=== PATIENT | male | born 1965 | race Two or more races ===

== ENCOUNTER 2017-07-19 21:42 | Observation (INO) | payer BC ==
[2017-07-19] MEDS ORDERED: SODIUM CHLORIDE 0.9% 1,000 ML IV STA (22:08)
--- NOTE | 2017-07-19 22:25 | ED ---
General Adult HPI - General Chief complaint: Neuro Symptoms/Deficit Stated complaint: Poss stroke Time Seen by Provider: 07/19/17 22:06 Source: patient, RN notes reviewed, old records reviewed Mode of arrival: ambulatory Limitations: no limitations - History of Present Illness Initial comments: This is a 51-year-old male the ER for evaluation neurological deficit. Patient does several cardiac orbit is including high blood pressure and cholesterol and diabetes. Patient states his status and numb all day and he went to [facility] and he noticed that he is having difficulty with sleeping. The patient does reiterate that neurological symptoms have been present throughout the day, occasional blurry vision, left-sided facial numbness and decrease in sensation. No prior history of CVA. Denies arm or leg deficits - Related Data Home Medications Medication Instructions Recorded Confirmed Atorvastatin Calcium [Lipitor] 40 mg PO 07/19/17 07/19/17 DULoxetine HCL [Cymbalta] 60 mg PO DAILY 07/19/17 07/19/17 Gabapentin [Neurontin] 300 mg PO 07/19/17 HYDROcodone/APAP 7.5-325MG [[place] 1 tab PO Q6HR PRN 07/19/17 07/19/17 7.5-325] Lisinopril [Prinivil] 10 mg PO DAILY 07/19/17 07/19/17 sitaGLIPtin PHOS/metFORMIN HCL 1 each PO BID 07/19/17 07/19/17 [Janumet 50-1,000 mg Tablet] Allergies Allergy/AdvReac Type Severity Reaction Status Date / Time No Known Allergies Allergy Verified 07/19/17 22:03 Review of Systems ROS Statement: Those systems with pertinent positive or pertinent negative responses have been documented in the HPI. ROS Other: All systems not noted in ROS Statement are negative. Past Medical History Past Medical History: Diabetes Mellitus, Hyperlipidemia, Hypertension Additional Past Medical History / Comment(s): neuropathy History of Any Multi-Drug Resistant Organisms: None Reported Past Surgical History: No Surgical Hx Reported Past Psychological History: No Psychological Hx Reported Smoking Status: Smoker, current status unknown Past Alcohol Use History: Daily Past Drug Use History: Marijuana General Exam - General Exam Comments Initial Comments: Left facial droop, involves upper forehead bilateral Limitations: no limitations, altered mental status General appearance: alert, in no apparent distress Head exam: Present: atraumatic, normocephalic, normal inspection Eye exam: Present: normal appearance, PERRL, EOMI. Absent: scleral icterus, conjunctival injection, periorbital swelling ENT exam: Present: normal exam, mucous membranes moist Neck exam: Present: normal inspection. Absent: tenderness, meningismus, lymphadenopathy Respiratory exam: Present: normal lung sounds bilaterally. Absent: respiratory distress, wheezes, rales, rhonchi, stridor Cardiovascular Exam: Present: regular rate, normal rhythm, normal heart sounds. Absent: systolic murmur, diastolic murmur, rubs, gallop, clicks GI/Abdominal exam: Present: soft, normal bowel sounds. Absent: distended, tenderness, guarding, rebound, rigid Extremities exam: Present: normal inspection, full ROM, normal capillary refill. Absent: tenderness, pedal edema, joint swelling, calf tenderness Back exam: Present: normal inspection Neurological exam: Present: alert, oriented X3, CN II-XII intact Psychiatric exam: Present: normal affect, normal mood Skin exam: Present: warm, dry, intact, normal color. Absent: rash Course Vital Signs 07/19/17 21:58 Temperature 97.7 F Pulse Rate 85 Respiratory 18 Rate Blood Pressure 149/79 O2 Sat by Pulse 96 Oximetry - Reevaluation(s) Reevaluation #1: 07/19/17 23:14 pt w no neurologivcal improvement discussed with patient symptoms and advised for neuro consult as symptoms are not clear cut, family agrees EKG Findings - EKG Comments: EKG Findings:: EKG shows normal sinus at a rate of 89, [place] 156, QRS 80, QTC 418 Medical Decision Making - Medical Decision Making 51 male to the ED co Left facial numbness, left facial weakness, patient will admit for neuro evaluation of CVA, patient does have significant cardiac risk - Lab Data Result diagrams: 07/19/17 22:42 Lab Results 07/19/17 07/19/17 Range/Units 22:42 22:42 WBC 7.7 (3.8-10.6) k/uL RBC 4.37 (4.30-5.90) m/uL Hgb 14.4 (13.0-17.5) gm/dL Hct 41.9 (39.0-53.0) % MCV 95.8 (80.0-100.0) fL MCH 32.8 (25.0-35.0) pg MCHC 34.3 (31.0-37.0) g/dL RDW 14.1 (11.5-15.5) % Plt Count 183 (150-450) k/uL Neutrophils % 61 % Lymphocytes % 24 % Monocytes % 7 % Eosinophils % 6 % Basophils % 1 % Neutrophils # 4.7 (1.3-7.7) k/uL Lymphocytes # 1.9 (1.0-4.8) k/uL Monocytes # 0.5 (0-1.0) k/uL Eosinophils # 0.4 (0-0.7) k/uL Basophils # 0.1 (0-0.2) k/uL PT 11.4 (9.0-12.0) sec INR 1.1 (<1.2) APTT 25.4 (22.0-30.0) sec - Radiology Data Radiology results: report reviewed (CT brain negative for acute disease), image reviewed Disposition Clinical Impression: Cerebrovascular accident, Adams's palsy Disposition: ADMITTED IP TO THIS [facility] Condition: Fair Referrals: Irlanda Vences DO [Primary Care Provider] - 1-2 days
--- NOTE | 2017-07-19 22:39 | CT ---
EXAM: CT Head Without Intravenous Contrast CLINICAL HISTORY: Weakness TECHNIQUE: Axial computed tomography images of the head/brain without intravenous contrast. DLP is 1064.30 mGy-cm. This CT exam was performed using one or more of the following dose reduction techniques: automated exposure control, adjustment of the mA and/or kV according to patient size, and/or use of iterative reconstruction technique. COMPARISON: No relevant prior studies available. FINDINGS: Brain: No evidence of acute transcortical infarct or acute intracranial hemorrhage. No significant white matter disease. No edema. Ventricles: Unremarkable. No ventriculomegaly. Bones/joints: Unremarkable. No acute fracture. Soft tissues: Probable 2.1 cm sebaceous cyst in the subcutaneous fat of the superior posterior neck, which is partially visualized. Sinuses: 2.2 cm mucous retention cyst versus polyp is seen in the visualized left maxillary sinus. Mastoid air cells: Unremarkable as visualized. No mastoid effusion. IMPRESSION: No evidence of acute transcortical infarct or acute intracranial hemorrhage. If symptoms persist, consider short-term interval CT versus MRI of the brain for follow-up.
[2017-07-19 22:58] LABS: Basophils # (A) 0.1 k/uL (0-0.2); Basophils % (A) 1 %; CH 33.7; CHCM 35.3; Eosinophils # (A) 0.4 k/uL (0-0.7); Eosinophils % (A) 6 %; HCT 41.9 % (39.0-53.0); HGB 14.4 gm/dL (13.0-17.5); Luc # (Auto) 0.13; Luc % (Auto) 2; Lymphocytes # (A) 1.9 k/uL (1.0-4.8); Lymphocytes % (A) 24 %; MCH 32.8 pg (25.0-35.0); MCHC 34.3 g/dL (31.0-37.0); MCV 95.8 fL (80.0-100.0); Monocytes # (A) 0.5 k/uL (0-1.0); Monocytes % (A) 7 %; Neutrophils # (A) 4.7 k/uL (1.3-7.7); Neutrophils % (A) 61 %; RBC 4.37 m/uL (4.30-5.90); RDW 14.1 % (11.5-15.5); WBC 7.7 k/uL (3.8-10.6)
[2017-07-19 23:11] LABS: INR 1.1 (<1.2); Partial Thromboplastin Time 25.4 sec (22.0-30.0); Prothrombin Time 11.4 sec (9.0-12.0)
[2017-07-19] MEDS ORDERED: ASPIRIN 325 MG TAB PO STA (23:11)
[2017-07-19 23:16] LABS: ALT 47 U/L (21-72); AST 42 U/L (17-59); Alkaline Phosphatase 66 U/L (38-126); Anion Gap 13 mmol/L; Blood Urea Nitrogen 11 mg/dL (9-20); Calcium 10.1 mg/dL (8.4-10.2); Carbon Dioxide 22 mmol/L (22-30); Chloride 104 mmol/L (98-107); Glucose 126 mg/dL (74-99); Magnesium 1.8 mg/dL (1.6-2.3); Non-African American GFR(MDRD) >60 (>60 ml/min/1.73 sqM); Phosphorous 3.8 mg/dL (2.5-4.5); Potassium 4.1 mmol/L (3.5-5.1); Sodium 139 mmol/L (137-145); Total Bilirubin 0.8 mg/dL (0.2-1.3); Total Protein 6.7 g/dL (6.3-8.2)
[2017-07-19 23:20] LABS: Creatine Kinase 86 U/L (55-170)
[2017-07-19 23:33] LABS: Troponin I <0.012 ng/mL (0.000-0.034)
[2017-07-19] MEDS: SODIUM CHLORIDE 0.9% 1,000 ML IV SCH (23:35)
[2017-07-20 00:48] VITALS: BMI 29.0
[2017-07-20] MEDS: HYDROcodone/APAP 7.5-325MG 1 EACH TAB PO PRN ×2 (09:12→15:37)
[2017-07-20] MEDS: LINAGLIPTIN 5 MG TABLET PO SCH ×2 (09:31→22:23)
[2017-07-20] MEDS: GABAPENTIN 300 MG CAP PO SCH ×3 (09:31→22:24)
[2017-07-20] MEDS: LISINOPRIL 10 MG TAB PO SCH (09:31)
[2017-07-20] MEDS: SODIUM CHLORIDE 0.9% 1,000 ML IV SCH (09:32)
[2017-07-20] MEDS: metFORMIN 500 MG TAB PO SCH ×2 (09:32→22:24)
[2017-07-20 10:23] VITALS: RESP 18
[2017-07-20 12:04] LABS: Glucose,Whole Blood 122 mg/dL (75-99)
[2017-07-20] MEDS: INSULIN LISPRO (humaLOG) 300 UNIT/3 ML VIAL SQ SCH ×3 (14:34→21:55)
[2017-07-20 16:31] LABS: Glucose,Whole Blood 119 mg/dL (75-99)
--- NOTE | 2017-07-20 16:46 | P.HPIM ---
History of Present Illness H&P Date: 07/20/17 Chief Complaint: Left facial numbness Patient is a 51-year-old with a known history of hypertension, diabetes type 2, diabetic neuropathy and hyperlipidemia came to the hospital with complaints of left cheek/facial numbness which he noted yesterday. Patient states his status and numb all day and he went to [facility] and he noticed that he is having difficulty. Patient tried to call his Pet. His aunt and noted that he was having left facial muscle weakness and advised to go to ER. Patient was also having some blurry vision and difficulty in speech. No prior history of CVA. No fever no chills no neck stiffness or headache.. No recent illnesses or sick contacts at home. Denies arm or leg deficits. Patient denied any loss of sensation on the forehead. Patient had CT head in the ER showed no intracranial abnormality MRI was ordered. Laboratory data within normal limits. Neurology has been consulted Review of Systems Constitutional: Patient denies any fever or chills . No generalized weakness or weight loss. Abdomen: Patient denied nausea vomiting and diarrhea and abdominal pain. Cardiovascular: Patient denies any chest pain or short of breath no palpitations. Respiratory: patient denied any cough or production. No shortness of breath Neurologic: Patient denied any numbness or tingling headache. Left facial numbness. No other weakness Musculoskeletal: Patient denies any complaints of joint swelling or deformity. Skin: Negative Psychiatric: Negative Endocrine: No heat or cold intolerance. No recent weight gain. Genitourinary: No dysuria or hematuria. All other 14 point ROS negative except the above Past Medical History Past Medical History: Diabetes Mellitus, Hyperlipidemia, Hypertension Additional Past Medical History / Comment(s): neuropathy History of Any Multi-Drug Resistant Organisms: None Reported Past Surgical History: No Surgical Hx Reported Past Psychological History: No Psychological Hx Reported Smoking Status: Smoker, current status unknown Past Alcohol Use History: Daily Past Drug Use History: Marijuana - Past Family History Mother Family Medical History: No Reported History Father Family Medical History: No Reported History Medications and Allergies Home Medications Medication Instructions Recorded Confirmed Type Atorvastatin Calcium [Lipitor] 40 mg PO HS 07/19/17 07/20/17 History DULoxetine HCL [Cymbalta] 60 mg PO HS 07/19/17 07/20/17 History Gabapentin [Neurontin] 900 mg PO TID 07/19/17 07/20/17 History Lisinopril [Prinivil] 10 mg PO DAILY 07/19/17 07/20/17 History sitaGLIPtin PHOS/metFORMIN HCL 1 tab PO BID 07/19/17 07/20/17 History [Janumet 50-1,000 mg Tablet] HYDROcodone/APAP 7.5-325MG [[place] 7.5 - 325 PO Q6HR 07/20/17 History 7.5-325] Allergies Allergy/AdvReac Type Severity Reaction Status Date / Time No Known Allergies Allergy Verified 07/20/17 07:49 Physical Exam Vitals: Vital Signs Temp Pulse Pulse Resp BP BP Pulse Ox 07/20/17 08:00 97.8 F 85 18 133/73 96 07/20/17 04:00 97.5 F L 86 17 136/71 95 07/19/17 23:36 75 15 153/76 98 07/19/17 23:11 97.4 F L 74 16 143/74 95 07/19/17 21:58 97.7 F 85 18 149/79 96 Intake and Output 07/19/17 07/20/17 07/20/17 22:59 06:59 14:59 Intake Total 500 530 Balance 500 530 Intake: Intake, IV Titration 500 Amount Sodium Chloride 0.9% 1, 500 000 ml @ 100 mls/hr IV . Q10H [facility] Rx#:[id number] Oral 530 Other: Voiding Method Toilet Toilet Weight 90.265 kg 94.3 kg PHYSICAL EXAMINATION: Patient is lying in the bed comfortably, no acute distress, awake alert and oriented.. HEENT: Normocephalic. Neck is supple. Pupils reactive. Nostrils clear. Oral cavity is moist. Ears reveal no drainage. Neck reveals no JVD, carotid bruits, or thyromegaly. CHEST EXAMINATION: Trachea is central. Symmetrical expansion. Lung eng clear to auscultation and percussion. CARDIAC: Normal S1, S2 with no gallops. No murmurs ABDOMEN: Soft. Bowel sounds normal. No organomegaly. No abdominal bruits. Extremities: reveal no edema. No clubbing or cyanosis Neurologically awake, alert, oriented x3 with well-coordinated movements. Patient does have numbness on the left cheek and loss of nasolabial fold Patient denied any numbness on the forehead. No gait abnormality. Skin: No rash or skin lesions. Psychiatric: Operative. Nonsuicidal Musculoskeletal: No joint swelling or deformity. Normal range of motion. Results CBC & Chem 7: 07/19/17 22:42 07/19/17 22:42 Labs: Abnormal Lab Results - Last 24 Hours (Table) 07/19/17 07/20/17 Range/Units 22:42 12:00 Creatinine 0.50 L (0.66-1.25) mg/dL Glucose 126 H (74-99) mg/dL POC Glucose (mg/dL) 122 H (75-99) mg/dL Thrombosis Risk Factor Assmnt - DVT/VTE Prophylaxis DVT/VTE Prophylaxis: Pharmacologic Prophylaxis ordered - Choose All That Apply Any of the Below Risk Factors Present?: No Other Risk Factors: No Other congenital or acquired thrombophilia - If yes, enter type in comment: No Thrombosis Risk Factor Assessment Level: Very Low Risk Assessment and Plan Plan: #1 left facial weakness likely due to acute CVA/TIA #2 hypertension #3 diabetes type 2 #4 hyperlipidemia #5 diabetic neuropathy #6 DVT prophylaxis Plan: Patient be continued on aspirin and atorvastatin. MRI was ordered for further evaluation. CT head showed no acute abnormality. Will check carotid duplex bilaterally as well. Continue with home medications and blood sugar management. Neurology has been consulted and further recommendations based on the clinical course.
[2017-07-20] MEDS ORDERED: ASPIRIN 325 MG TAB PO SCH (21:00)
[2017-07-20] MEDS ORDERED: ATORVASTATIN 40 MG TAB PO SCH (21:00)
[2017-07-20] MEDS ORDERED: DULoxetine HCL 60 MG CAPSULE.DR PO SCH (21:00)
[2017-07-20 21:20] LABS: Glucose,Whole Blood 111 mg/dL (75-99)
[2017-07-20] MEDS: methylPREDNISolone 4 MG TAB TAPER PO SCH (22:26)
[2017-07-21 06:24] LABS: Glucose,Whole Blood 157 mg/dL (75-99)
--- NOTE | 2017-07-21 06:31 | P.CNNES ---
History of Present Illness Consult date: 07/20/17 Reason for Consult: Patient admitted with left-sided facial numbness and weakness. History of Present Illness: This patient is a 51-year-old right-handed white male who was in his usual state of health until yesterday evening when he developed numbness involving the left side of his face. He was quite concerned as he was on his way to work and was not sure why his facial numbness came on suddenly. Patient does have several stroke risk factors including hypertension, diabetes mellitus, and hypercholesterolemia. He did complete his work but continued to notice numbness on the left side of the face. Apparently went to sleep yesterday but did try to whistle and grimace and noted that he was having left-sided facial weakness as well. The next day the patient was continuing to have similar symptoms of left-sided facial numbness and weakness on the face. He was quite concerned about the possibility of stroke. He was brought into the emergency room for further evaluation. He was seen in the ER by Dr. Lovett he was evaluated for possibility of acute stroke. His NIH stroke scale was 1.0. This was documented at 2215 hrs. on 07/19/2017. Patient was not felt to be a candidate for TPA. He states he has been working at [employer] and drives on a daily basis. He is not exposed to any cold wind or if exposure to the face to this event. He was evaluated in the ER by Dr. Lovett for possibility of stroke versus acute Clifford's palsy. He was sent for computed tomography scan of the brain which was negative for any acute changes. He was advised admission to the hospital for MRI study as well as a neurological assessment. The patient denies any previous history of TIA or stroke. He does follow with his primary care physician Dr. Vences on a fairly regular basis. He does have a history of underlying diabetes mellitus and states his blood sugars have been under fairly good control. He thinks his last hemoglobin A1c was around 7.0. During the onset of the left facial numbness he was also experiencing difficulty with taste sensation on the left side of his tongue. He did not experience any slurred speech. When he attempted to drink out of a glass it was coming out on the angle of the mouth on the left side. The patient was admitted to the hospital for full neurological evaluation. Patient was seen on [facility] today and his neurological examination is consistent with an acute left idiopathic Clifford's palsy. We have recommended starting the patient on a Medrol Dosepak and he will also require eyedrops to the left eye every 4-6 hours. We recommend that he patch the left eye when sleeping on a regular basis. Patient is scheduled for MRI of the brain tomorrow. We will await the results of the MRI and give further recommendations. Neurology is now been consulted for further evaluation and recommendations. Review of Systems Constitutional: Denies chills, Denies fever Eyes: left blurred vision, left tunnel vision/blind spots, denies pain Ears, nose, mouth and throat: Denies headache, Denies sore throat Cardiovascular: Denies chest pain, Denies shortness of breath Respiratory: Denies cough Gastrointestinal: Denies abdominal pain, Denies diarrhea, Denies nausea, Denies vomiting Musculoskeletal: Denies myalgias Integumentary: Denies pruritus, Denies rash Neurological: Reports paralysis, Reports paresthesias, Reports tingling, Denies numbness, Denies weakness Psychiatric: Denies anxiety, Denies depression Endocrine: Denies fatigue, Denies weight change Past Medical History Past Medical History: Diabetes Mellitus, Hyperlipidemia, Hypertension Additional Past Medical History / Comment(s): neuropathy History of Any Multi-Drug Resistant Organisms: None Reported Past Surgical History: No Surgical Hx Reported Past Psychological History: No Psychological Hx Reported Smoking Status: Smoker, current status unknown Past Alcohol Use History: Daily Past Drug Use History: Marijuana - Past Family History Mother Family Medical History: No Reported History Father Family Medical History: No Reported History Medications and Allergies Home Medications Medication Instructions Recorded Confirmed Type Atorvastatin Calcium [Lipitor] 40 mg PO HS 07/19/17 07/20/17 History DULoxetine HCL [Cymbalta] 60 mg PO HS 07/19/17 07/20/17 History Gabapentin [Neurontin] 900 mg PO TID 07/19/17 07/20/17 History Lisinopril [Prinivil] 10 mg PO DAILY 07/19/17 07/20/17 History sitaGLIPtin PHOS/metFORMIN HCL 1 tab PO BID 07/19/17 07/20/17 History [Janumet 50-1,000 mg Tablet] HYDROcodone/APAP 7.5-325MG [[place] 7.5 - 325 PO Q6HR 07/20/17 History 7.5-325] Allergies Allergy/AdvReac Type Severity Reaction Status Date / Time No Known Allergies Allergy Verified 07/20/17 07:49 Physical Examination - Vital Signs Vital Signs: Vital Signs Temp Pulse Pulse Resp BP BP Pulse Ox 07/20/17 08:00 97.8 F 85 18 133/73 96 07/20/17 04:00 97.5 F L 86 17 136/71 95 07/19/17 23:36 75 15 153/76 98 07/19/17 23:11 97.4 F L 74 16 143/74 95 07/19/17 21:58 97.7 F 85 18 149/79 96 Intake and Output 07/19/17 07/20/17 07/20/17 22:59 06:59 14:59 Intake Total 500 30 Balance 500 30 Intake: Intake, IV Titration 500 Amount Sodium Chloride 0.9% 1, 500 000 ml @ 100 mls/hr IV . Q10H [facility] Rx#:[id number] Oral 30 Other: Voiding Method Toilet Weight 90.265 kg 94.3 kg - Constitutional General appearance: average body habitus, cooperative - EENT EENT: PERRL, mucous membranes moist - Respiratory Respiratory: lungs clear, normal breath sounds - Cardiovascular Cardiovascular: regular rate, normal S1, normal S2 Extremities: no peripheral edema bilaterally - Gastrointestinal Gastrointestinal: normoactive bowel sounds - Integumentary Integumentary: normal - Neurologic Cranial nerve examination: PERRL, EOMI, VFF, V1/V2/V3 grossly intact, tongue midline, intact gag reflex, intact corneal reflex, facial droop (Patient has a left lower motor neuron facial weakness pattern.), normal palatal elevation Speech examination: intact Sensorimotor examination: intact Detailed motor examination: grossly full strength in all extremities Motor examination - right side: 4/5: biceps, triceps, wrist flexion, wrist extension, tree driller, hip flexors, knee extensors, dorsiflexion, toe extension (EHL) , plantarflexion Motor examination - left side: 4/5: biceps, triceps, wrist flexion, wrist extension, tree driller, hip flexors, knee extensors, dorsiflexion, toe extension (EHL) , plantarflexion Detailed sensory examination: intact (He is going to TB any coming on) Reflex and gait examination: intact Reflexes: 1+: ankle, bicep, knee, tricep - Musculoskeletal Musculoskeletal: no pain - Psychiatric Psychiatric: mood/affect appropriate, cooperative (CNN) Results - Laboratory Findings CBC and BMP: 07/19/17 22:42 07/19/17 22:42 Abnormal Lab Findings: Abnormal Labs 07/19/17 22:42 Creatinine 0.50 L Glucose 126 H Assessment and Plan (1) Clifford's palsy Status: Acute Code(s): G51.0 - CLIFFORD'S PALSY (2) Diabetes mellitus type 2 in nonobese Status: Acute Code(s): E11.9 - TYPE 2 DIABETES MELLITUS WITHOUT COMPLICATIONS (3) Essential hypertension Status: Acute Code(s): I10 - ESSENTIAL (PRIMARY) HYPERTENSION Plan: This patient is a 51-year-old male admitted to hospital with acute onset of left -sided facial numbness and facial weakness. He was brought into the emergency room earlier today for further evaluation of his current symptoms. He had evidence suggesting possibility of acute left idiopathic Clifford's palsy. He underwent a computed tomography scan of the brain which was negative for any acute changes. He is scheduled to undergo MRI of the brain tomorrow. He was admitted to hospital for further neurological evaluation. His neurological examination at this time confirms evidence of a left idiopathic Clifford's palsy. We have recommended that he be started on a Medrol Dosepak and he should be placed on eyedrops to the left eye every 3-4 hours. She'll be patching the left eye while sleeping. His prognosis remains fair at this time. He is scheduled for MRI of the brain tomorrow and we will await these results. His overall prognosis at this time remains guarded. We will continue close neurological follow this patient during this admission. Time with Patient: Greater than 30
[2017-07-21] MEDS: HYDROcodone/APAP 7.5-325MG 1 EACH TAB PO PRN ×2 (06:50→14:34)
[2017-07-21] MEDS: INSULIN LISPRO (humaLOG) 300 UNIT/3 ML VIAL SQ SCH ×3 (06:53→17:19)
[2017-07-21] MEDS: SODIUM CHLORIDE 0.9% 1,000 ML IV SCH ×2 (06:58→06:59)
[2017-07-21] MEDS: metFORMIN 500 MG TAB PO SCH (08:53)
[2017-07-21] MEDS: methylPREDNISolone 4 MG TAB TAPER PO SCH (08:53)
[2017-07-21] MEDS: GABAPENTIN 300 MG CAP PO SCH ×2 (08:54→16:07)
[2017-07-21] MEDS: LINAGLIPTIN 5 MG TABLET PO SCH (08:54)
[2017-07-21] MEDS ORDERED: ARTIFICIAL TEARS-HYPROMELLOSE DROPS 15 ML BTL LEFT EYE PRN (09:00)
[2017-07-21] MEDS: LISINOPRIL 10 MG TAB PO SCH (10:04)
--- NOTE | 2017-07-21 10:16 | US ---
EXAMINATION TYPE: US carotid duplex BILAT DATE OF EXAM: 07/21/2017 COMPARISON: NONE CLINICAL HISTORY: CVA. CVA EXAM MEASUREMENTS: RIGHT: Peak Systolic Velocity (PSV) cm/sec ----- Right CCA: 76.5 ----- Right ICA: 98.2 ----- Right ECA: 145.1 ICA/CCA ratio: 1.3 RIGHT: End Diastole cm/sec ----- Right CCA: 21.0 ----- Right ICA: 25.8 ----- Right ECA: 23.9 LEFT: Peak Systolic Velocity (PSV) cm/sec ----- Left CCA: 136.8 ----- Left ICA: 89.9 ----- Left ECA: 130.2 ICA/CCA ratio: 0.7 LEFT: End Diastole cm/sec ----- Left CCA: 36.2 ----- Left ICA: 26.0 ----- Left ECA: 24.5 VERTEBRALS (direction of flow): Right Vertebral: Antegrade Left Vertebral: Antegrade Rhythm: Normal Elevated velocities: right mid ECA, left distal CCA, left bulb and left mid ECA, no significant steno sis. IMPRESSION: No evidence of hemodynamically significant stenosis. Criteria for Assigning % of Stenosis / Diameter reduction (Estimation based on the indirect measurements of the internal carotid artery velocities (ICA PSV). 1. Normal (no stenosis)=ICA PSV < 125 cm/s: ratio < 2.0: ICA EDV<40 cm/s. 2. Less than 50% stenosis=ICA PSV < 125 cm/s: ratio < 2.0: ICA EDV<40 cm/s. 3. 50 to 69% stenosis=ICA PSV of 125 to 230 cm/s: ration 2.0 ? 4.0: ICA EDV 40-100 cm/s. 4. Greater than 70% stenosis to near occlusion= ICA PSV > 230 cm/s: ratio > 4.0: ICA EDV > 100 cm/s. 5. Near occlusion= ICA PSV velocities may be low or undetectable: variable ratio and ICA EDV. 6. Total occlusion=unable to detect flow.
[2017-07-21 11:18] LABS: Hemoglobin A1C 6.5 % (4.2-6.1)
--- NOTE | 2017-07-21 13:14 | MR ---
PRE AND POSTCONTRAST ENHANCED MRI OF THE BRAIN: CLINICAL HISTORY: CVA symptoms CONTRAST: Gadavist 9 ml Multiplanar and multispin-echo imaging of the brain was performed both before and after the administr ation of contrast. The ventricles, basal cisterns and sulci overlying the cerebral convexities are within normal limits. There is no evidence for midline shift or mass effect. Acute intracranial hemorrhage or extra-axial collection is not evident. There are no abnormal areas of increased or decreased signal intensity within the brain parenchyma. Following contrast administration, there is no evidence for pathologic enhancement or enhancing mass. Moderate-sized mucous retention cyst left maxillary sinus. Mucosal thickening right maxillary sinus. Mastoid air cells well-aerated. IMPRESSION: Unremarkable pre and postcontrast enhanced MRI of the brain.
[2017-07-21 14:09] LABS: Glucose,Whole Blood 157 mg/dL (75-99)
[2017-07-21 16:38] LABS: Glucose,Whole Blood 151 mg/dL (75-99)
[2017-07-21 17:16] VITALS: BP 116/62; PULSE 98; TEMP 97.4
== END 2017-07-21 17:32 | disposition home or self-care (01) ==
LOC: EC 21:42 → 6SEL 23:11 → INTOOBSV 23:11
PROVIDERS: ADMIT Hospitalist; ATTEND Hospitalist
DX: G51.0 Bell's palsy (principal); I10 Essential (primary) hypertension; E78.5 Hyperlipidemia, unspecified; E11.40 Type 2 diabetes mellitus with diabetic neuropathy, unspecified; R29.701 NIHSS score 1; F17.200 Nicotine dependence, unspecified, uncomplicated; Z79.899 Other long term (current) drug therapy; Z79.84 Long term (current) use of oral hypoglycemic drugs
CPT/HCPCS: 96360; 99285; 36415; 95819; 93005; 80053; 83036; 82550; 82553; 83735; 84100; 84484; 85025; 85610; 85730; 93880; 70450; 70553; G0378 ×4; J7509 ×2; A9581